=== PATIENT | female | born 1985 | race Two or more races ===

== ENCOUNTER 2022-11-29 08:43 | Emergency (ER) | payer MEDICAID ==
[~2022-11-29] VITALS: Ht 157.5 cm; Wt 69.0 kg
[2022-11-29 11:04] VITALS: BP 177/89
[2022-11-29] MEDS ORDERED: KETOROLAC TROMETH 30 MG/ML 1ML VIAL IM ONE (11:15)
[2022-11-29] MEDS ORDERED: IBUP600T28 PO (12:08)
== END 2022-11-29 12:26 | disposition home or self-care (01) ==
LOC: ER 08:43
DX: S46.912A Strain of unspecified muscle, fascia and tendon at shoulder and upper arm level, left arm, initial encounter (principal); Z79.1 Long term (current) use of non-steroidal anti-inflammatories (NSAID); X58.XXXA Exposure to other specified factors, initial encounter; Y93.89 Activity, other specified; Y92.89 Other specified places as the place of occurrence of the external cause; Y99.8 Other external cause status
CPT/HCPCS: 73030; 93005; 96372; 99283; J1885